=== PATIENT | female | born 1990 | race Caucasian/White ===

== ENCOUNTER 2024-06-19 23:46 | Emergency (ER) | payer OTHER, SELFPAY ==
--- NOTE | ~2024-06-19 | XR_ITS ---
EXAMINATION: XR HIP, RIGHT CLINICAL INFORMATION: Injury. Pain. COMPARISON: None available. TECHNIQUE: Two views of the right hip. FINDINGS: No fracture. Alignment is anatomic. Hip joint space is maintained. Soft tissues are unremarkable. XR/XR hip RT w PEL1V IMPRESSION: No significant abnormality identified.
--- NOTE | ~2024-06-19 | XR_ITS ---
EXAMINATION: XR FINGER, RIGHT CLINICAL INFORMATION: Injury. Pain. COMPARISON: None available. TECHNIQUE: 3 views of the right first digit. FINDINGS: The bones and soft tissues are normal. No fracture. Alignment is anatomic. Joint spaces are maintained. XR/XR finger RT min 2V IMPRESSION: No significant abnormality identified.
[2024-06-19 23:47] VITALS: BP 133/83; PULSE 87; RESP 17; TEMP 37.1; O2SAT 99; BMI 31.2
--- NOTE | 2024-06-20 00:55 | ED_ITS ---
HPI - General Adult General Chief complaint: Extremity Problem Stated complaint: hip inj Time Seen by Provider: 06/20/24 00:43 Source: patient Mode of arrival: ambulatory Limitations: no limitations History of Present Illness HPI narrative: Patient is a 33-year-old female who presents to the emergency department for evaluation. She states she was sitting on the floor ? style? with her legs crossed hips externally rotated upon standing she felt a sudden pop to her right hip and experienced pain particularly with ambulation. 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 She also states that she hyperextended the tip of her right thumb when this occurred. Has swelling to the right thumb and pain. Did not take any NSAIDs or analgesics prior to arrival. Related Data Allergies Allergy/AdvReac Type Severity Reaction Status Date / Time amoxicillin Allergy Anaphylaxis Verified 06/19/24 23:49 Penicillins Allergy Anaphylaxis Verified 06/19/24 23:49 Review of Systems Review of Systems: Yes all other systems are reviewed and are negative [facility] Past Medical History Attestation statement: The following information was validated with the patient. Source: old records reviewed Social History Social History Smoked in Last 30 Days: No Use of substances other than those prescribed or required for medical reasons: No Advance Directives: No Advance Directives Information Provided: Yes Do you have a plan to hurt others: No Plan Patient : No Physical Exam ED Vital Signs: Vital Signs - 24 hr 06/19/24 23:47 06/20/24 01:42 Temperature 98.8 F 98.2 F Pulse Rate 87 75 Respiratory Rate 17 16 Blood Pressure 133/83 130/55 L Pulse Oximetry 99 98 Oxygen Delivery Method Room Air Room Air BMI result Body Mass Index 31.2 Appearance: Alert.?Oriented to person, place and time. No acute distress.?Normal affect. CVS: Heart sounds normal. Normal heart rate and rhythm.? Pulses normal.?? Respiratory: No respiratory distress.? Lung sounds clear to auscultation bilaterally?? Skin: Skin warm and dry.? Normal skin color.? ?? Extremities: No lower extremity edema.? No calf ttp. 2+ DP/PT pulse laterally. Mild tenderness upon palpation of the right hip no ecchymosis swelling or erythema. Full range of motion is present. Right thumb localized swelling, no deformity, full range of motion Neuro: Moves all extremities spontaneously. Sensation intact bilaterally. CN II- XII intact. No focal neuro deficits. Ambulates with normal steady gait. Medications Administered Discontinued Medications Generic Name Dose Route Start Last Admin Trade Name Alma PRN Reason Stop Dose Admin Ibuprofen 600 mg 06/20/24 01:00 06/20/24 01:46 Ibuprofen 600 Mg Tablet PO 06/20/24 01:01 600 mg ONCE ONE Administration Medical Decision Making Medical Decision Making [facility] Narrative: Patient is a 33-year-old female with past medical history of Autumn-Danlos syndrome presenting to emergency department for evaluation of right hip and right thumb pain as per HPI, expressed concern for dislocation based on history. Has full range of motion on examination, extremities neurovascularly intact distally. She has some mild localized swelling to the thumb but has full range of motion. I personally reviewed x-ray of the right hip and right thumb do not appreciate any acute fracture. She is requesting ibuprofen which I feel is reasonable at this time. Anticipate discharge home Differential Diagnosis Differential Diagnoses: The differential diagnosis associated with the presentation includes (See narrative above) Independent Interpretation I performed an independent interpretation of an: Plain X-Ray (See narrative above) Radiology Impression Discussion of test interpretation with radiology: I have reviewed the radiolo gist's reading. Radiologist Impression: XR/XR hip RT w PEL1V IMPRESSION: No significant abnormality identified. XR/XR finger RT min 2V IMPRESSION: No significant abnormality identified. External Record Review External record reviewed: Outpatient record Prescription Management I considered prescription management with: Pain Medication Discharge Plan Discharge Clinical Impression: Acute hip pain, Contusion of right thumb Patient Disposition: Home, Self-Care Instructions: Contusion in Adults (ED), R.I.C.E. Treatment (ED) Additional Instructions: You can take ibuprofen 200 mg, 3 tablets (600mg) every 6-8 hours as needed for pain, in addition to Tylenol 500 mg, 2 tablets (1,000mg) every 4-6 hours as needed for pain, but not to exceed 3 doses daily (3,000mg).? Follow-up with your primary care doctor. Return to emergency department any new or worsening symptoms or concerns. Referrals: Physician,Unknown J [Primary Care Provider] - Print Language: [place]
[2024-06-20 01:42] VITALS: BP 130/55; PULSE 75; RESP 16; TEMP 36.8; O2SAT 98
[2024-06-20] MEDS: Ibuprofen 600 MG TABLET PO (01:46)
[2024-06-20 02:44] VITALS: BP 130/55; PULSE 75; RESP 16; TEMP 36.8; O2SAT 98
== END 2024-06-20 02:45 | disposition home or self-care (01) ==
PROVIDERS: Emergency Provider Internal Medicine
DX: S60.011A Contusion of right thumb without damage to nail, initial encounter (principal); M25.551 Pain in right hip; X58.XXXA Exposure to other specified factors, initial encounter; Y93.89 Activity, other specified; Y92.89 Other specified places as the place of occurrence of the external cause; Y99.8 Other external cause status
CPT/HCPCS: 73140; 73502; 99283; 99284

== ENCOUNTER 2025-07-23 17:06 | Emergency (ER) | payer OTHER, SELFPAY ==
--- NOTE | ~2025-07-23 | CT_ITS ---
CLINICAL HISTORY: headache, head trauma CT head without contrast Comparison: None provided Findings: No intra-axial mass, midline shift, hydrocephalus, or acute hemorrhage. No significant atrophy-like change or white matter disease. There is no sinus or mastoid fluid. The orbits are within normal limits. No skull fracture. IMPRESSION: 1. No acute intracranial findings. This document has been electronically signed by: Sima Elizabeth MD on 07/23/2025 19:56:19
[2025-07-23 17:23] VITALS: BP 129/58; PULSE 77; RESP 18; TEMP 37; O2SAT 99; BMI 37.3
--- NOTE | 2025-07-23 18:08 | ED_ITS ---
HPI - Head Injury General Chief complaint: Head Injury Stated complaint: hit by a drill @ work, has a headache/nauseous Time Seen by Provider: 07/23/25 20:42 Source: patient Limitations: no limitations History of Present Illness ED Provider: Eliana Mccullough PA-C HPI Narrative: 35-year-old female presents with forehead contusion. Patient states while at work, she was struck in the head with a drill that was engaged. Patient is developing a contusion over right forehead. Associated headache and nausea at times. Denies loss of consciousness, she does not use a blood thinner. Related Data Previous Rx's ?Medication ?Instructions ?Recorded ondansetron 4 mg disintegrating 4 mg PO Q8H PRN nausea and 07/23/25 tablet vomiting #10 tabs Allergies Allergy/AdvReac Type Severity Reaction Status Date / Time amoxicillin Allergy Anaphylaxis Verified 07/23/25 17:26 Penicillins Allergy Anaphylaxis Verified 07/23/25 17:26 Review of Systems Review of Systems: Yes all other systems are reviewed and are negative Constitutional: Constitutional: Denies fatigue, Denies fever(s) and Reports headache(s) ENT: Denies dizziness, Reports headache(s) and Denies neck pain Cardiovascular: Cardiovascular: Denies chest pain Gastrointestinal: Gastrointestinal: Denies abdominal pain, Reports nausea and Denies vomiting Musculoskeletal: Musculoskeletal: Denies back pain and Denies neck pain Neurologic: Denies dizziness and Reports headache(s) Endocrine: Endocrine: Denies fatigue PMF Past Medical History Attestation statement: The following information was validated with the patient. Social History Social History Advance Directives: No Advance Directives Information Provided: No Patient : No Physical Exam Vital Signs: Vital Signs: Last Vital Signs Temp 98.0 F 07/23/25 21:14 Pulse 77 07/23/25 21:14 Resp 16 07/23/25 21:14 BP 132/72 07/23/25 21:14 Pulse Ox 96 07/23/25 21:14 O2 Del Method Room Air 07/23/25 21:14 BMI result Body Mass Index 37.3 Const: Other: Alert well-appearing, right forehead contusion noted Orientation/consciousness: patient oriented x3 Neck: Other: Full range of motion Resp: Effort & Inspection: normal respiratory effort Cardio: Other: Normal peripheral perfusion Skin: Other: Warm dry no rash Neuro: General: patient oriented x3, gait normal, no focal motor deficits and CN's II-XI intact bilaterally Psych: Other: Cooperative Course Course Course Narrative: This is an RME: Additional HPI, ROS, PE not included below will be deferred to primary provider. RME assessment and note performed by: Elena Todd PA-C This is a 89-ean[age]-bmd-female who presents to the ER with complaints of head injury which occurred at work. She was hit in the head by a drill at work. Endorsing nausea and headache. Plan: CT head Medications Administered Discontinued Medications Generic Name Dose Route Start Last Admin Trade Name Freq PRN Reason Stop Dose Admin Ondansetron HCl 4 mg 07/23/25 20:55 07/23/25 21:11 Ondansetron Odt 4 Mg Tab.Rapdis TRANSLINGU 07/23/25 20:56 4 mg ONCE ONE Administration Medical Decision Making Medical Decision Making [facility] Narrative: 35-year-old female presents with forehead contusion. Patient states while at work, she was struck in the head with a drill that was engaged. Patient is developing a contusion over right forehead. Associated headache and nausea at times. Denies loss of consciousness, she does not use a blood thinner. No relevant chronic issues History: Per patient I have considered the following differential diagnoses: Forehead contusion, concussion, skull fracture, intracranial hemorrhage Plan: CT scan ordered from triage, there was no acute injury. We will treat as if the patient has a concussion. I have independently reviewed the following tests: CT brain: Findings: No intra-axial mass, midline shift, hydrocephalus, or acute hemorrhage. No significant atrophy-like change or white matter disease. There is no sinus or mastoid fluid. The orbits are within normal limits. No skull fracture. IMPRESSION: 1. No acute intracranial findings. Differential Diagnosis Differential Diagnoses: The differential diagnosis associated with the presentation includes See medical decision-making Admission/Observation Consideration of admission/observation: Escalation of care including admission/observation considered Not applicable Radiology Impression Discussion of test interpretation with radiology: I have reviewed the radiologist's reading. Discharge Plan Discharge Clinical Impression: Closed head injury, Concussion without loss of consciousness, Postconcussion syndrome Patient Disposition: Home, Self-Care Instructions: Concussion (ED), Post Concussion Syndrome (ED) Additional Instructions: The CT scan of your brain was normal. You likely have a concussion. See home care instructions. For your headache you can use Tylenol 1000 mg taken every 8 hours, with ibuprofen 600 mg taken every 6 hours with food, uses Zofran as needed for nausea. You may develop what is called postconcussion syndrome, I have provided you with information to read about in the event that you develop further and/or prolonged symptoms. Follow up with your primary care as needed. Prescriptions: New ondansetron 4 mg tablet,disintegrating 4 mg PO Q8H PRN (Reason: nausea and vomiting) Qty: 10 0RF Stand Alone Forms: Work/School Release Interventions: ED Discharge Assessment Last Done: 07/23/25 21:14 Discharge Date/Time: 07/23/25 21:32 Print Language: Bangladeshi
[2025-07-23 21:14] VITALS: BP 132/72; PULSE 77; RESP 16; TEMP 36.7; O2SAT 96
--- OUTSIDE RECORDS SUMMARY | 2025-07-23 21:28 | XMS_ITS | Clinical Summary ---
Author Organization [facility] Address [address] [place] [id number] Phone Care Team Providers Care Rn Referral Name Role Phone Eryn Hummel Primary Care Provider Allergies Active Allergy Reactions Criticality Noted Date Comments Amoxicillin 01/06/2021 Penicillins 01/06/2021 Medications pantoprazole (PROTONIX) 40 MG tablet Take 40 mg by mouth daily as needed. Active ketoconazole 2 % cream Apply 1 application topically 2 (two) times a day. Active butalbital-acet aminophen-caffe ine (FIORICET, ESGIC) 50-325-40 mg per tablet Take 1 tablet by mouth every 4 (four) hours as needed. Active albuterol 90 mcg/actuation inhaler Inhale 2 puffs into the lungs every 4 (four) hours as needed. Active norethindrone-e thinyl estradiol-iron (LOESTRIN 24 FE 12/03) 1 mg-20 mcg Tab Take 1 tablet by mouth daily. Active Active Problems No known active problems Family History Medical History Relation Comments Skin cancer Maternal Grandmother ?type Relation Status Comments Maternal Grandmother Social History Tobacco Use Types Packs/Day Years Used Date Smoking Tobacco: Former Cigarettes Q uit: 11/13/2020 Smokeless Tobacco: Never Education Answer Date Recorded Are you interested in more education? Not on daniel e 03/11/2023 Are you concerned about learning? Not on file 03/11/2023 No 03/11/2023 No 03/11/2023 Digital Access Answer Date Recorded No 04/09/2023 No 04/09/2023 Reliable internet access at home? Not on file 04/09/2023 Device with a working camera? Not on file Comments Unknown Sex and Gender Information Value Date Recorded Sex Assigned at Not on file Legal Sex Female 12:46 PM EST Gender Identity Not on file Sexual Orientation Not on file Last Filed Vital Signs Vital Sign Reading Time Taken Comments Blood Pressure 108/84 01/08/2021 4:09 PM EST Pulse 83 01/08/2021 4:09 PM EST Temperature 36.3 C (97.3 F) 01/08/2021 4:09 PM EST Respiratory Rate - - Oxygen Saturation 98% 01/08/2021 4:09 PM EST Inhaled Oxygen Concentration - - Weight 77.1 kg (170 lb) 01/08/2021 4:09 PM EST Height 157.5 cm (5' 2 ) 01/08/2021 4:09 PM EST Body Mass Index 31.09 01/08/2021 4:09 PM EST Plan of Treatment Health Maintenance Due Date Last Done Comments Adult Td,Tdap Booster 1990 DEPRESSION SCREENING 2002 SMOKING Hx and SMOKELESS TOBACCO SCREENING 2003 HEPATITIS C SCREENING 2008 HIV ONE-TIME SCREENING (18-6 5 YEARS) 2008 PAP SMEAR 2011 INFLUENZA VACCINE (#1) 2025 COVID-19 VACCINE (3 - 2024-2 6 season) 2025 03/31/2021, 03/10/2021 PNEUMOCOCCAL VACCINES (0-49 years) Aged Out 06/04/2021 No longer eligible b ased on patient's age to complete this topic HEPATITIS A VACCINES Aged Out No long er eligible based on patient's age to complete this topic HIB VACCINES Aged Out No longer eligi ble based on patient's age to complete this topic MENINGOCOCCAL VACCINES (ACWY) Aged Out No longer eligible based on patient's age to complete this topic MENINGOCOCCAL VACCINES (B) Aged Out N o longer eligible based on patient's age to complete this topic Medical Devices Not on file Insurance [facility] PPO BLUE CROSS OUT OF STATE PPO BLUE CROSS OUT OF STATE PPO BLUE CROSS OUT OF STATE PPO BLUE CROSS OUT OF STATE PPO BLUE CROSS OUT OF STATE PPO BLUE CROSS OUT OF STATE PPO BLUE CROSS OUT OF STATE PPO BLUE CROSS OUT OF STATE PPO Care Teams Rn Referral Relationship Specialty Start Date End Date Eryn Hummel PA [address] [facility] [address] [place] [id number] PCP - General Machine Lead Burner 01/05/21 Additional Source Comments The information contained in this document represents components of the legal health record. It is not the complete legal health record.[facility]
--- OUTSIDE RECORDS SUMMARY | 2025-07-23 21:28 | XMS_ITS | Clinical Summary ---
Author Organization [facility] Address [address] [place] [address] Care Team Providers Care Materials Coordinator Name Role Phone Unavailable Primary Care Provider Unavailabl e Social History Tobacco Use Types Packs/Day Years Used Date Smoking Tobacco: Never Assessed Comments Unknown Sex and Gender Information Value Date Recorded Sex Assigned at Not on file Legal Sex Female 11:49 AM EDT Gender Identity Not on file Sexual Orientation Not on file Plan of Treatment Health Maintenance Due Date Last Done Comments Hepatitis C Virus Screening 1990 HIV Screening 2003 DTaP/Tdap/Td Vaccines (1 - Tdap) 2009 Hepatitis B Vaccines (1 of 3 - 19+ 3-dose series) 2009 HPV Vaccines (1 - 3-dose SCD M series) 2017 COVID-19 Vaccine (2023-2 5 season) 2024 Pneumococcal Vaccine: Pediat major (0-5 Years) and At-Risk Patients (6 to 49 Years) Aged Out No longer eligible b ased on patient's age to complete this topic
== END 2025-07-23 21:32 | disposition home or self-care (01) ==
PROVIDERS: Emergency Provider Emergency Medicine; PCP Physician Assistant Medical
DX: S06.0X0A Concussion without loss of consciousness, initial encounter (principal); R51.9 Headache, unspecified; X58.XXXA Exposure to other specified factors, initial encounter; Y93.H3 Activity, building and construction; Y93.9 Activity, unspecified; Y92.9 Unspecified place or not applicable; Y99.0 Civilian activity done for income or pay
CPT/HCPCS: 70450; 99284

== ENCOUNTER → 2025-07-23 17:24 | Outpatient (BNV) | payer OTHER, SELFPAY | PROVIDERS: PCP Physician Assistant Medical; Visit Provider Radiology Diagnostic Radiology | DX: R51.9 Headache, unspecified (principal) | CPT/HCPCS: 70450 ==